=== PATIENT | female | born 1990 | race African-American/Black ===

== ENCOUNTER 2022-09-13 13:21 | Outpatient (CLI) | payer OTHER, SELFPAY | END 2022-09-13 13:22 | disposition home or self-care (01) | LOC: ANHAUDIO 13:22 | PROVIDERS: PCP Nurse Practitioner Family; Visit Provider Nurse Practitioner Family | DX: Z01.10 Encounter for examination of ears and hearing without abnormal findings (principal) | CPT/HCPCS: 99199 ==

== ENCOUNTER 2023-12-04 12:35 | Outpatient (CLI) | payer OTHER, SELFPAY | END 2023-12-04 12:36 | disposition home or self-care (01) | LOC: ANHAUDIO 12:35 | PROVIDERS: PCP Internal Medicine; Visit Provider Internal Medicine | DX: Z01.10 Encounter for examination of ears and hearing without abnormal findings (principal) | CPT/HCPCS: 92557; 92567 ==